=== PATIENT | male | born 1960 | race Caucasian/White ===

== ENCOUNTER → 2022-06-11 | Outpatient (CLI) | payer BC ==
[~2022-06-11] MED LIST: AMLO10 PO; ATEN50 PO; CLON.2 PO; LEVSOD25 PO; LISI20 PO; NITR.4SL SL; SPIR50 PO
== END ==
LOC: PLD 07:04 → LAB 07:04 → LAB SHORT 07:04
DX: R21 Rash and other nonspecific skin eruption (principal)
CPT/HCPCS: 88312

== ENCOUNTER 2024-01-12 10:38 | Day surgery (SDC) | payer MEDICARE, OTHER ==
[~2024-01-12] VITALS: Ht 182.9 cm; Wt 114.3 kg
[2024-01-12] VITALS (8 sets, daily range): BP systolic 150–162; BP diastolic 81–110
[~2024-01-12 10:38] MED LIST changes: +ALBU90OI INH; +ALLO100 PO; +ATOR80 PO; +Aspir 8181 MG PO; +ELIQUIS5 M2 PO; +LOSA50 PO; +SILD50TA PO; +ZYRTEC10 M2 PO
[2024-01-12 12:07] LABS: Bun/Creatinine Ratio 13.8 (12.0-20.0); Creatinine, Blood 0.51 mg/dL (0.60-1.20); Potassium, Blood 4.1 mmol/L (3.5-5.5)
[2024-01-12 12:42] LABS: International Normalized Ratio 1.06
[2024-01-12 12:43] LABS: Prothrombin Time Results 11.3 Sec (9.7-11.5)
[2024-01-12] MEDS ORDERED: Heparin Sodium 1000 Units/ML 10ML MDV ONE ×2 (14:11→14:34)
[2024-01-12] MEDS ORDERED: NS 2,000 ML IV ONE (14:11)
[2024-01-12] MEDS ORDERED: Nitroglycerin 2 MG/20 ML BTL ONE (14:11)
[2024-01-12] MEDS ORDERED: NS 250 ML IV ONE (14:11)
[2024-01-12] MEDS ORDERED: Midazolam HCl 1MG / ML 2ML Vial ONE ×2 (14:19→15:21)
[2024-01-12] MEDS ORDERED: FentaNYL Citrate 50 MCG/ML 2 ML Injection ONE ×2 (14:19→15:21)
--- NOTE | 2024-01-12 15:56 | NUR ---
RIGHT GROIN SITE SOFT AND NONTENDER, NO HEMATOMA, NO BLEEDING POST PROCEDURE
--- NOTE | 2024-01-12 16:56 | NUR ---
[facility] p[facility] PROCEDURE, RIGHT GROIN SITE SOFT AND NONTENDER, NO HEMATOMA, NO BLEEDING
--- NOTE | 2024-01-12 17:00 | NUR ---
PATIENT HOB UP AND RIGHT GROIN STABLE, NO CHANGES
--- NOTE | 2024-01-12 17:15 | NUR ---
PATIENT AMBULATED TO RESTROOM, RIGHT GROIN SITE UNCHANGED.
[2024-01-12] MEDS ORDERED: CLOP75 PO (17:42)
--- NOTE | 2024-01-12 18:05 | NUR ---
PATIENT VERBALIZED UNDERSTANDING OF DISCHARGE INSTRUCTIONS AND PRECAUTIONS. NO FURTHER QUESTIONS. RIGHT GROIN SITE STABLE NO CHANGES. IV SITE DCED WITH CATJHETER INTACT. PATIENT DISCHARGED VIA WHEELCHAIR TO CAR. DAUGHTER DRIVING
== END 2024-01-12 22:41 | disposition home or self-care (01) ==
LOC: MHTC 10:38
PROVIDERS: Radiology Diagnostic Radiology
DX: I70.223 Atherosclerosis of native arteries of extremities with rest pain, bilateral legs (principal); I48.0 Paroxysmal atrial fibrillation; I10 Essential (primary) hypertension; E78.5 Hyperlipidemia, unspecified; F17.210 Nicotine dependence, cigarettes, uncomplicated; Z79.01 Long term (current) use of anticoagulants; Z79.82 Long term (current) use of aspirin; Z79.899 Other long term (current) drug therapy
CPT/HCPCS: 37227; 75625; 75716; 75774; 76937; 80048; 85610; 99152; 99153; C1714; C1760; C1769; C1874; C1887; C1894; C2623; J1644; J2250; J3010; J7030; J7050; Q9967

== ENCOUNTER 2024-03-15 19:50 | Inpatient (IN) | payer MEDICARE, OTHER ==
[~2024-03-15] VITALS: Ht 182.9 cm; Wt 117.5 kg
[~2024-03-15 19:50] MED LIST changes: +CLOP75 PO
[2024-03-15] MEDS ORDERED: Ipratropium/Albuterol SulF 2.5-0.5MG/3 ML Amp INH ONE (20:05)
[2024-03-15] MEDS ORDERED: Albuterol 2.5 MG/3 ML VIAL INH SCH ×2 (20:05→20:55)
[2024-03-15 20:13] LABS: BASOPHILS ABSOLUTE AUTO 0.05 K/mm3 (0.00-0.23); BASOPHILS PERCENT AUTO 1 % (0-2); EOSINOPHILS ABSOLUTE AUTO 0.14 K/mm3 (0.00-0.68); EOSINOPHILS PERCENT AUTO 1 % (0-6); Hematocrit 54.1 % (37.0-53.0); Hemoglobin 17.5 g/dL (13.5-17.5); IMMATURE GRAN ABSOLUTE AUTO 0.03 K/mm3 (0.00-0.10); IMMATURE GRAN PERCENT AUTO 0 % (0-1); LYMPHOCYTES ABSOLUTE AUTO 2.65 K/mm3 (0.84-5.20); LYMPHOCYTES PERCENT AUTO 24 % (21-46); MONOCYTES ABSOLUTE AUTO 0.69 K/mm3 (0.16-1.47); MONOCYTES PERCENT AUTO 6 % (4-13); Mean Corpuscular HGB 31.1 pg (26.0-34.0); Mean Corpuscular HGB Conc 32.3 g/dL (31.5-36.5); Mean Corpuscular Volume 96 fL (80-100); Mean Platelet Volume 11.5 fL (9.1-12.4); NEUTROPHILS ABSOLUTE AUTO 7.34 K/mm3 (1.96-9.15); NEUTROPHILS PERCENT AUTO 67 % (41-73); Platelet Count 239 K/mm3 (150-400); RDW Coefficient Variation 14.8 % (11.7-14.2); RDW Standard Deviation 53.1 fL (35.1-46.3); Red Blood Cell Count 5.63 M/mm3 (4.30-5.90)
[2024-03-15 20:40] LABS: Albumin, Blood 3.5 g/dL (3.4-5.0); Albumin/Globulin Ratio 0.8 (0.8-1.8); Bilirubin, Total 0.7 mg/dL (0.1-1.0); Bun/Creatinine Ratio 19.7 (12.0-20.0); Calcium, Blood 9.2 mg/dL (8.5-10.1); Creatinine, Blood 0.81 mg/dL (0.60-1.20); Globulin, Blood 4.4 g/dL (2.2-4.0); Magnesium, Blood 1.9 mg/dL (1.6-2.4); Potassium, Blood 4.6 mmol/L (3.5-5.5); Total Protein, Blood 7.9 g/dL (6.4-8.2)
[2024-03-15] MEDS ORDERED: MethylPREDNISolone Sod Succ 125 MG Vial IV ONE (20:55)
[2024-03-15] MEDS ORDERED: CefTRIAXone Sodium 1,000 MG in NS 50 ML IV ONE (20:55)
[2024-03-15] MEDS ORDERED: NS 1,000 ML IV SCH ×2 (20:55)
[2024-03-15] MEDS ORDERED: Azithromycin 500 MG in NS 250 ML IV ONE (20:55)
[2024-03-15] MEDS ORDERED: Nicotine 21 MG PATCH TOP ONE (20:55)
[2024-03-15] MEDS ORDERED: Ondansetron 4 MG TAB PO PRN (21:20)
[2024-03-15] MEDS ORDERED: Acetaminophen 325 MG TABLET PO PRN (21:20)
[2024-03-15] MEDS ORDERED: Ipratropium/Albuterol SulF 2.5-0.5MG/3 ML Amp INH SCH ×2 (21:25→21:45)
[2024-03-15] MEDS ORDERED: Azithromycin 250 MG Tab PO SCH (22:00)
[2024-03-15] MEDS ORDERED: Albuterol 2.5 MG/3 ML VIAL INH PRN (22:00)
[2024-03-15 22:50] VITALS: BP 137/78
[2024-03-15] MEDS ORDERED: Apixaban 5 MG Tab PO SCH (23:28)
[2024-03-16] MEDS ORDERED: MethylPREDNISolone Sod Succ 125 MG Vial IV SCH (02:00)
--- NOTE | 2024-03-16 02:15 | NUR ---
PATIENT IS SLEEPING WHEN THIS RN ENTERS ROOM FOR MEDICATION ADMINISTRATION. PATIENT WAKES AND DENIES PAIN OR DISCOMFORT.
[2024-03-16 04:36] VITALS: BP 132/70
[2024-03-16 05:59] LABS: BASOPHILS ABSOLUTE AUTO 0.02 K/mm3 (0.00-0.23); BASOPHILS PERCENT AUTO 0 % (0-2); EOSINOPHILS ABSOLUTE AUTO 0.01 K/mm3 (0.00-0.68); EOSINOPHILS PERCENT AUTO 0 % (0-6); Hematocrit 53.6 % (37.0-53.0); IMMATURE GRAN ABSOLUTE AUTO 0.05 K/mm3 (0.00-0.10); IMMATURE GRAN PERCENT AUTO 1 % (0-1); LYMPHOCYTES ABSOLUTE AUTO 1.17 K/mm3 (0.84-5.20); LYMPHOCYTES PERCENT AUTO 11 % (21-46); MONOCYTES ABSOLUTE AUTO 0.06 K/mm3 (0.16-1.47); MONOCYTES PERCENT AUTO 1 % (4-13); Mean Corpuscular HGB 31.1 pg (26.0-34.0); Mean Corpuscular HGB Conc 31.7 g/dL (31.5-36.5); Mean Corpuscular Volume 98 fL (80-100); Mean Platelet Volume 11.6 fL (9.1-12.4); NEUTROPHILS ABSOLUTE AUTO 9.06 K/mm3 (1.96-9.15); NEUTROPHILS PERCENT AUTO 87 % (41-73); Platelet Count 213 K/mm3 (150-400); RDW Coefficient Variation 14.6 % (11.7-14.2); RDW Standard Deviation 53.4 fL (35.1-46.3); Red Blood Cell Count 5.47 M/mm3 (4.30-5.90); White Blood Cell Count 10.37 K/mm3 (4.00-11.30)
[2024-03-16] MEDS ORDERED: Levothyroxine Sodium 0.025 MG Tab PO SCH (06:00)
[2024-03-16 06:23] LABS: Albumin, Blood 3.1 g/dL (3.4-5.0); Albumin/Globulin Ratio 0.7 (0.8-1.8); Bilirubin, Total 0.4 mg/dL (0.1-1.0); Bun/Creatinine Ratio 25.8 (12.0-20.0); Calcium, Blood 8.8 mg/dL (8.5-10.1); Creatinine, Blood 0.81 mg/dL (0.60-1.20); Globulin, Blood 4.4 g/dL (2.2-4.0); Potassium, Blood 5.1 mmol/L (3.5-5.5); Total Protein, Blood 7.5 g/dL (6.4-8.2)
--- NOTE | 2024-03-16 06:42 | NUR ---
SHIFT SUMMARY PATIENT IS ALERT AND ORIENTED TO ALL. FULL CODE. PLEASANT AND COOPERATIVE WITH CARE. THIS RN DISCUSSES WITH PATIENT THE NEED TO CALL IF HE NEEDS TO GET OUT OF BED TO PREVENT FALLS AND INJURY. PATIENT IS A CURRENT EVERYDAY SMOKER. NICOTINE PATCH IS ON RIGHT SHOULDER. SUPPLEMENTAL OXYGEN SET AT 6L VIA NASAL CANNULA. BASELINE IS ROOM AIR. PATIENT DENIES PAIN OR DISCOMFORT DURING THIS SHIFT. PATIENT CALLS APPROPRIATELY. CALL LIGHT IS WITHIN REACH, AND BED IS IN THE LOWEST POSITION. ALL INFORMATION WILL BE REPORTED TO ONCOMING AM NURSE. NO ACUTE CHANGES DURING THIS SHIFT.
[2024-03-16 07:38] VITALS: BP 121/69
[2024-03-16] MEDS ORDERED: Allopurinol 100 MG Tab PO SCH (09:00)
[2024-03-16] MEDS ORDERED: Losartan Potassium 50 MG Tab PO SCH (09:00)
[2024-03-16] MEDS ORDERED: Atorvastatin 40 MG Tab PO SCH (09:00)
[2024-03-16] MEDS ORDERED: Enoxaparin 40 MG/0.4 ML SYR SC SCH (09:00)
[2024-03-16] MEDS ORDERED: Aspirin 81 MG TabEC PO SCH (09:00)
[2024-03-16] MEDS ORDERED: AmLODIPine Besylate 5 MG Tab PO SCH (09:00)
[2024-03-16 10:26] LABS: PCO2 Arterial 88.9 mmHg (35-45); PO2 Arterial 76.5 mmHg (80-100)
--- NOTE | 2024-03-16 11:06 | NUR ---
CALL FROM [facility] IN [place]. PT ABGs ABNL. RECOMMEND CPAP. PER DR ALLEN: BIPAP AND PULMO CONSULT.
--- NOTE | 2024-03-16 11:12 | NUR ---
CALL TO DR. BHARDWAJ FOR PULMONOLOGY REFERRAL. STATES HE'LL COME SEE THE PATIENT.
[2024-03-16 14:18] LABS: Base Excess Venous 6.3 mmol/L; Bicarbonate Venous 27.3 mmol/L (24.0-30.0); pH Blood Venous 7.28 (7.34-7.37)
[2024-03-16] MEDS ORDERED: ROSUVASTATIN CAL5 MG PO (15:39)
[2024-03-16 15:44] VITALS: BP 131/72
--- NOTE | 2024-03-16 17:37 | NUR ---
END OF SHIFT SUMMARY: A&Ox4. PLEASANT AND COOPERATIVE WITH CARE. CALLS APPROPRIATELY AND IS ABLE TO ADVOCATE NEEDS EFFECTIVELY. INDEPENDENT TO BATHROOM, BUT CALLS TO NOTIFY US FOR LINE MANAGEMENT. LBM TODAY. MEDS WHOLE WITH FLUIDS. TELE V-PACED @ 65bpm. 12-15LPM/HFC. ABGs YIELDED HYPERCAPNIA, SO BiPap INITIATED; F/U VBGs SHOWED IMPROVING. HAS SLEPT MAJORITY OF THE AFTERNOON, REPORTING EXTREME FATIGUE, LIKELY SECONDARY TO HYPERCAPNIA AND IMPROVED SLEEP WITH BiPap. NO C/O PAIN OR DISCOMFORT. PULMONOLOGY CONSULTED. IV FUROSEMIDE INITIATED THIS AFTERNOON. IV STEROIDS TO AID WITH PULMONARY INFLAMMATION. BED IN LOWEST POSITION. CALL LIGHT WITHIN REACH. ALL NEEDS MET. REPORT TO ONCOMING RN.
--- NOTE | 2024-03-16 18:11 | NUR ---
CALL TO PATIENT'S DAUGHTER, AGUEDA NOTIFYING HER OF HOW HE'S DOING. SHE IS GOING TO BRING HIM SOME DINNER TONIGHT. WILL BE HERE SHORTLY.
[2024-03-16] MEDS ORDERED: Azithromycin 250 MG Tab PO SCH ×2 (20:00→21:00)
[2024-03-16 20:17] VITALS: BP 114/65
[2024-03-16] MEDS ORDERED: CefTRIAXone Sodium 1,000 MG in NS 100 ML IV SCH (21:00)
[2024-03-16] MEDS ORDERED: Nicotine 21 MG PATCH TOP SCH (22:30)
--- NOTE | 2024-03-17 04:21 | NUR ---
NO ACUTE CHANGES, BIPAP WITH 15L BLEED IN OVERNIGHT, CONTINUOUS PULSE OXIMETER READING SAT >90%. PT DENIES PAIN, CHEST PRESSURE. SOB WITH AMBULATION. ALERT AND ORIENTED X4, ABLE TO MAKE NEEDS KNOWN. 12L HFNC WHILE AWAKE. PT IS INDEPENDENT IN THE ROOM, WILL CALL IF ASSISTANCE IS NEEDED.
[2024-03-17 05:30] VITALS: BP 126/69
[2024-03-17 05:30] LABS: BASOPHILS ABSOLUTE AUTO 0.01 K/mm3 (0.00-0.23); BASOPHILS PERCENT AUTO 0 % (0-2); EOSINOPHILS PERCENT AUTO 0 % (0-6); Hematocrit 49.6 % (37.0-53.0); Hemoglobin 15.8 g/dL (13.5-17.5); IMMATURE GRAN PERCENT AUTO 1 % (0-1); LYMPHOCYTES ABSOLUTE AUTO 1.39 K/mm3 (0.84-5.20); LYMPHOCYTES PERCENT AUTO 8 % (21-46); MONOCYTES ABSOLUTE AUTO 0.39 K/mm3 (0.16-1.47); MONOCYTES PERCENT AUTO 2 % (4-13); Mean Corpuscular HGB 30.9 pg (26.0-34.0); Mean Corpuscular HGB Conc 31.9 g/dL (31.5-36.5); Mean Corpuscular Volume 97 fL (80-100); Mean Platelet Volume 11.3 fL (9.1-12.4); NEUTROPHILS ABSOLUTE AUTO 15.63 K/mm3 (1.96-9.15); NEUTROPHILS PERCENT AUTO 89 % (41-73); Platelet Count 217 K/mm3 (150-400); RDW Coefficient Variation 14.8 % (11.7-14.2); RDW Standard Deviation 53.3 fL (35.1-46.3); Red Blood Cell Count 5.11 M/mm3 (4.30-5.90); White Blood Cell Count 17.52 K/mm3 (4.00-11.30)
[2024-03-17 05:53] LABS: Bun/Creatinine Ratio 38.5 (12.0-20.0); Calcium, Blood 9.1 mg/dL (8.5-10.1); Creatinine, Blood 0.91 mg/dL (0.60-1.20); Potassium, Blood 4.9 mmol/L (3.5-5.5)
[2024-03-17] MEDS ORDERED: Furosemide 10 MG/ML 4ML Vial IV SCH (09:00)
[2024-03-17 09:51] LABS: Base Excess Venous 4.8 mmol/L; Bicarbonate Venous 27.1 mmol/L (24.0-30.0); PCO2 Venous 52.3 mmHg (38-42); pH Blood Venous 7.37 (7.34-7.37)
[2024-03-17] MEDS ORDERED: Ipratropium/Albuterol SulF 2.5-0.5MG/3 ML Amp INH SCH (10:25)
[2024-03-17] MEDS ORDERED: Thiamine HCl 100 MG Tab PO SCH (11:00)
[2024-03-17] MEDS ORDERED: Folic Acid 1 MG TAB PO SCH (11:00)
[2024-03-17 15:41] VITALS: BP 111/72
--- NOTE | 2024-03-17 17:16 | NUR ---
SHIFT SUMMARY PT RESTING QUIETLY ON BIPAP DURING SHIFT REPORT. WOKE EASILY FOR CARE. UP TO EOB TO EAT BREAKFAST. INDEPENDENT TO BTHRM NEEDED. DR BHARDWAJ IN TO SEE PT, PER PULMONOLOGY CONSULT. DR ALLEN LATER IN TO SEE PT WELL. NEW ORDERS RECEIVED; SEE CHART. PT ADMITTED FOR RESP FAILURE. O2 NEEDS COMING DOWN. PT REPORTS FEELING A LITTLE BETTER THAN WHEN HE CAME IN. SEVERAL FAMILY IN TO VISIT WELL. PER REPORT, PT NEEDING NEW PACE MAKER BATTERY SOON; V-PACED AT 65. PLEASANT AND CO-OP WITH CARE. NO C/O. CALL LT IN REACH.
[2024-03-17] MEDS ORDERED: Metoprolol Tartrate 25 MG Tab PO SCH (21:00)
[2024-03-18 03:55] VITALS: BP 119/54
[2024-03-18 06:10] LABS: BASOPHILS ABSOLUTE AUTO 0.01 K/mm3 (0.00-0.23); BASOPHILS PERCENT AUTO 0 % (0-2); EOSINOPHILS ABSOLUTE AUTO 0.02 K/mm3 (0.00-0.68); EOSINOPHILS PERCENT AUTO 0 % (0-6); Hematocrit 50.7 % (37.0-53.0); Hemoglobin 16.2 g/dL (13.5-17.5); IMMATURE GRAN ABSOLUTE AUTO 0.13 K/mm3 (0.00-0.10); IMMATURE GRAN PERCENT AUTO 1 % (0-1); LYMPHOCYTES ABSOLUTE AUTO 1.46 K/mm3 (0.84-5.20); LYMPHOCYTES PERCENT AUTO 8 % (21-46); MONOCYTES ABSOLUTE AUTO 0.66 K/mm3 (0.16-1.47); MONOCYTES PERCENT AUTO 3 % (4-13); Mean Corpuscular HGB 30.9 pg (26.0-34.0); Mean Corpuscular Volume 97 fL (80-100); Mean Platelet Volume 11.7 fL (9.1-12.4); NEUTROPHILS ABSOLUTE AUTO 17.18 K/mm3 (1.96-9.15); NEUTROPHILS PERCENT AUTO 88 % (41-73); Platelet Count 236 K/mm3 (150-400); RDW Coefficient Variation 14.9 % (11.7-14.2); RDW Standard Deviation 53.2 fL (35.1-46.3); Red Blood Cell Count 5.24 M/mm3 (4.30-5.90); White Blood Cell Count 19.46 K/mm3 (4.00-11.30)
[2024-03-18 06:26] LABS: Bun/Creatinine Ratio 54.2 (12.0-20.0); Creatinine, Blood 0.78 mg/dL (0.60-1.20); Potassium, Blood 5.1 mmol/L (3.5-5.5)
--- NOTE | 2024-03-18 06:44 | NUR ---
SHIFT SUMMARY: Pt is admitted for acute hypoxic respiratory failure and is a full code. Is alert and able to make needs known. ADLs have been independent during shift. Denies pain or discomfort when asked. Jesus reports v paced at about 65. Started shift a 5lpm via NC ended shift on 2lpm. Did attempt being on RA for a short time but SPO2 dropped below 88% and was placed back on 2lpm to which he recovered and has maintained better than 90%.
[2024-03-18 07:29] VITALS: BP 123/77
[2024-03-18] MEDS ORDERED: VISBIOME 112.51 EACH PO (14:17)
[2024-03-18] MEDS ORDERED: B-1100 M1 PO (14:17)
[2024-03-18] MEDS ORDERED: FURO40 PO (14:18)
[2024-03-18] MEDS ORDERED: CEFU500T30 PO (14:18)
[2024-03-18] MEDS ORDERED: IPRAT-ALBUT 0.5-3 ML INH (14:19)
[2024-03-18] MEDS ORDERED: MULVITA PO (14:20)
[2024-03-18] MEDS ORDERED: Prednisone10 MG PO (14:22)
[2024-03-18] MEDS ORDERED: STIOLTO RESPIMAT4 G1 INH (14:23)
--- NOTE | 2024-03-18 15:04 | NUR ---
DISCHARGE REVIEWED WITH PT. HE VERBALIZED UNDERSTANDING MEDS AND INST. O2 PROTABLE TANK IN POSSESSION. IV X2 PULLED INTACT. TELE REMOVED. PT WHEELED TO DOOR AT 1505 BY AIDE.
== END 2024-03-18 15:36 | disposition home or self-care (01) | DRG 193 ==
LOC: ER 19:50 → MEDS 21:18
PROVIDERS: Family Medicine; Family Medicine Adult Medicine; Physician Assistant; ADMIT Student in an Organized Health Care Education/Training Program
PROC: 4B02XSZ Measurement of Cardiac Pacemaker, External Approach (ICD-10-PCS; 2024-03-15)
PROC: 5A09357 Assistance with Respiratory Ventilation, Less than 24 Consecutive Hours, Continuous Positive Airway Pressure (ICD-10-PCS; principal; 2024-03-16)
PROC: 4A033R1 Measurement of Arterial Saturation, Peripheral, Percutaneous Approach (ICD-10-PCS; 2024-03-16)
DX: J18.9 Pneumonia, unspecified organism (principal); I50.31 Acute diastolic (congestive) heart failure; J96.01 Acute respiratory failure with hypoxia; J96.02 Acute respiratory failure with hypercapnia; E66.2 Morbid (severe) obesity with alveolar hypoventilation; J44.1 Chronic obstructive pulmonary disease with (acute) exacerbation; J44.0 Chronic obstructive pulmonary disease with (acute) lower respiratory infection; I11.0 Hypertensive heart disease with heart failure; I73.9 Peripheral vascular disease, unspecified; E03.9 Hypothyroidism, unspecified; I48.91 Unspecified atrial fibrillation; M10.9 Gout, unspecified; N52.9 Male erectile dysfunction, unspecified; E78.5 Hyperlipidemia, unspecified; F17.210 Nicotine dependence, cigarettes, uncomplicated; D72.829 Elevated white blood cell count, unspecified; T38.0X5A Adverse effect of glucocorticoids and synthetic analogues, initial encounter; Z60.2 Problems related to living alone; Z79.890 Hormone replacement therapy; Z79.82 Long term (current) use of aspirin; Z79.01 Long term (current) use of anticoagulants; Z79.02 Long term (current) use of antithrombotics/antiplatelets; Z95.820 Peripheral vascular angioplasty status with implants and grafts; Z68.35 Body mass index [BMI] 35.0-35.9, adult; Z45.018 Encounter for adjustment and management of other part of cardiac pacemaker
CPT/HCPCS: 36415; 36600; 71045; 80048; 80053; 82803; 83605; 83735; 83880; 84484; 85025; 87040; 93005; 93010; 93306; 94640; 94644; 94660; 94664; 94761; 94762; 96374; 96375; 99285-25; A9270; J0456; J0696; J1940; J2919; J7030; J7050

== ENCOUNTER 2024-03-30 08:06 | Day surgery (SDC) | payer MEDICARE, OTHER ==
[2024-03-30] VITALS (11 sets, daily range): BP systolic 162–183; BP diastolic 84–103
[~2024-03-30] VITALS: Ht 182.9 cm; Wt 115.2 kg
[~2024-03-30 08:06] MED LIST changes: +B-1100 M1 PO; +CEFU500T30 PO; +FURO40 PO; +IPRAT-ALBUT 0.5-3 ML INH; +MULVITA PO; +Prednisone10 MG PO; +ROSUVASTATIN CAL5 MG PO; +STIOLTO RESPIMAT4 G1 INH; +VISBIOME 112.51 EACH PO
[2024-03-30] MEDS ORDERED: ALBU2.5V5 INH (09:22)
[2024-03-30] MEDS ORDERED: NS 1,000 ML IV ONE ×2 (09:31→09:40)
[2024-03-30] MEDS ORDERED: FentaNYL Citrate 50 MCG/ML 2 ML Injection ONE (09:31)
[2024-03-30] MEDS ORDERED: Midazolam HCl 1MG / ML 2ML Vial ONE (09:31)
[2024-03-30] MEDS ORDERED: CeFAZolin Sodium 2,000 MG VIAL ONE (09:31)
[2024-03-30] MEDS ORDERED: NS 100 ML IV ONE (09:31)
[2024-03-30] MEDS ORDERED: CeFAZolin Sodium 1000 mg Vial ONE (09:40)
[2024-03-30] MEDS ORDERED: NS 250 ML IV ONE (09:40)
[2024-03-30] MEDS ORDERED: Heparin Sodium 1000 Units/ML 10ML MDV ONE (09:40)
--- NOTE | 2024-03-30 12:53 | NUR ---
PT BACK TO RECOVERY FROM LAB. ACCESS SITES SOFT AND NON-TENDER PER PT. NO BLEEDING NOTED. PT GIVEN FOOD AND COFFEE. PT SITTING UP IN CHAIR USING CELL PHONE. PT PLACED ON O2 VIA NC AT 2LPM.
--- NOTE | 2024-03-30 13:02 | NUR ---
PT TO XRAY VIA WC.
--- NOTE | 2024-03-30 13:17 | NUR ---
pt back from imaging. pt ambulated to restroom w/o assistance.
--- NOTE | 2024-03-30 14:08 | NUR ---
access sites soft and mildly tender per pt. no bleeding noted.
--- NOTE | 2024-03-30 14:30 | NUR ---
pt given dc instructions and verbalized understanding. iv out. access sites soft and mildly tender per pt. no bleeding noted. pt chnaged. pt refused wc. pt walked to [facility]. pts daughter to give pt ride home.
== END 2024-03-30 14:43 | disposition home or self-care (01) ==
LOC: MHTC 08:06
DX: Z45.010 Encounter for checking and testing of cardiac pacemaker pulse generator [battery] (principal); I11.0 Hypertensive heart disease with heart failure; I50.30 Unspecified diastolic (congestive) heart failure; I48.0 Paroxysmal atrial fibrillation; E03.9 Hypothyroidism, unspecified; E78.5 Hyperlipidemia, unspecified; Z88.8 Allergy status to other drugs, medicaments and biological substances; Z79.01 Long term (current) use of anticoagulants; Z79.890 Hormone replacement therapy; Z79.899 Other long term (current) drug therapy
CPT/HCPCS: 33210; 33227; 33228; 71045; 76937; 99152; 99153; C1785; C1894; J0690; J1644; J2250; J3010; J7030; J7040; J7050